=== PATIENT | male | born 1960 | race Hispanic/Latino ===

== ENCOUNTER 2022-03-26 11:48 | Emergency (ER) | payer BC ==
[2022-03-26 12:08] VITALS: BP 112/61
[2022-03-26 13:33] LABS: Basophils # (Auto) 0.1 K/mm3 (0.0-0.1); Basophils % (Auto) 0.8 % (0.0-1.8); Eosinophils # (Auto) 0.1 K/mm3 (0.0-0.4); Hematocrit 41.9 % (35.5-45.6); Hemoglobin 14.4 gm/dl (11.8-15.2); Lymphocytes # (Auto) 1.9 K/mm3 (1.2-5.4); Lymphocytes % (Auto) 25.2 % (13.4-35.0); Mean Corpuscular HGB Conc 34 % (32-34); Mean Corpuscular Volume 98 fl (84-94); Monocytes # (Auto) 0.4 K/mm3 (0.0-0.8); Platelet Count 183 K/mm3 (140-440); Red Blood Count 4.29 M/mm3 (3.65-5.03); Red Cell Distribution Width 13.3 % (13.2-15.2)
[2022-03-26 13:40] LABS: INR 0.88 (0.87-1.13); Partial Thromboplastin Time 25.5 Sec. (24.2-36.6)
[2022-03-26 13:48] LABS: Creatine Kinase MB 2.2 ng/mL (0.0-4.0)
[2022-03-26 13:50] LABS: Alanine Aminotransferase 22 units/L (7-56); Albumin 4.4 g/dL (3.9-5); BUN/Creatinine Ratio 19; Blood Urea Nitrogen 27 mg/dL (9-20); Calcium 9.2 mg/dL (8.4-10.2); Hemolysis Index 10
--- NOTE | 2022-03-26 14:05 | Cat Scan Report ---
CT HEAD WITHOUT CONTRAST INDICATION / CLINICAL INFORMATION: syncope. TECHNIQUE: All CT scans at this location are performed using CT dose reduction for ALARA by means of automated exposure control. COMPARISON: None available. FINDINGS: CEREBRAL/CEREBELLAR PARENCHYMA: Moderate generalized cerebral cortical and cerebellar atrophy. Minima l periventricular and subcortical chronic microangiopathy. No CT evidence for an acute or subacute te rritorial infarct. HEMORRHAGE: No acute intra-axial hemorrhage or extra-axial fluid collection. MASS: No mass or mass effect. VENTRICULAR SYSTEM: Normal in size and morphology for the patient's age. ORBITS: Normal as visualized. SOFT TISSUES/SKULL: No scalp hematoma or skull fracture. PARANASAL SINUSES/MASTOID AIR CELLS: Normal as visualized. IMPRESSION: 1. No acute intracranial process. Signer Name: Siddhartha Chavira MD Signed: 03/26/2022 2:00 PM Workstation Name: [id number]
--- NOTE | 2022-03-27 10:53 | Electrocardiograph Report ---
[facility] Test Date: 2022-03-26 Test Time: 12:09:47 Pat Name: YOUNG BUCKLEY Department: Room: Gender: M [employer]: AF : 1960 Requested By: ED DOC Order Number: [id number] Reading MD: Christian Vazquez Measurements Intervals [place] Rate: 48 P: -31 CO: 197 QRS: 5 QRSD: 99 T: 65 QT: 505 QTc: 451 Interpretive Statements Sinus bradycardia No previous ECG available for comparison Electronically Signed On 03-27-2022 10:52:57 EDT by Christian Vazquez
== END 2022-03-27 01:45 | disposition left against medical advice (07) ==
LOC: ED 11:48
DX: R55 Syncope and collapse (principal); Z53.21 Procedure and treatment not carried out due to patient leaving prior to being seen by health care provider
CPT/HCPCS: 36415; 70450; 80053; 82550; 82553; 84484; 85025; 85610; 85730; 93005